=== PATIENT | male | born 1975 | race Caucasian/White ===

== ENCOUNTER → 2023-04-26 12:13 | Outpatient (CLI) | payer BC, SELFPAY ==
--- NOTE | 2023-04-26 | DI.US.S_ITS ---
PROCEDURE: US SCROTUM INDICATIONS: TESTICULAR MASS TECHNIQUE: Real-time scanning was performed of the scrotum and testicles, with image documentation. Color and pulse Doppler interrogation was performed of both testicles. COMPARISON: None. FINDINGS: Right: Right testicle measures 4.4 x 2.3 x 3.6 centimeters. No varicocele or hydrocele. Heterogeneous epididymis, overall normal vascularity. Left: Left testicle measures 3.5 x 1.8 x 2.9 centimeters. No varicocele. Small hydrocele is present. Epididymis is within normal limits. Doppler: Color and pulse Doppler demonstrate normal and symmetric arterial flow in both testicles. IMPRESSION: Mild left hydrocele. No discrete mass identified. Clinical followup is recommended. If there is new or worsening clinical concern, reimaging could be obtained. Dictated by: Justo Barrett M.D. on 04/26/2023 at 17:07 Approved by: Justo Barrett M.D. on 04/26/2023 at 17:09
== END ==
PROVIDERS: PCP Registered Nurse; Referring Provider Registered Nurse; Visit Provider Registered Nurse
DX: N50.9 Disorder of male genital organs, unspecified (principal); N43.3 Hydrocele, unspecified
CPT/HCPCS: 76870

== ENCOUNTER → 2023-08-08 10:34 | Outpatient (CLI) | payer BC, SELFPAY ==
--- NOTE | 2023-08-08 10:37 | DI.RAD.S_ITS ---
PROCEDURE: XR ELBOW RT MIN 3V INDICATIONS: worsening chronic pain growth plate fracture age 9 no repair TECHNIQUE: 3 views of the elbow were acquired. COMPARISON: None. FINDINGS: Bones: No fractures or dislocations. No suspicious bony lesions. Severe periarticular osteophyte formation at the elbow joint. Soft tissues: Small elbow joint effusion. 15 mm diameter intra-articular loose body. No suspicious soft tissue calcifications. IMPRESSION: 1. Osteoarthritis with intra-articular loose body. 2. No acute fracture. No osseous lesion. If symptoms and/or clinical suspicion for pathology persist, further assessment with repeat, or advanced imaging (e.g., CT, MRI, or bone scan) may be helpful for further assessment. Dictated by: Dorian Lowe M.D. on 08/08/2023 at 11:00 Approved by: Dorian Lowe M.D. on 08/08/2023 at 11:00
== END ==
PROVIDERS: PCP Registered Nurse; Referring Provider Student in an Organized Health Care Education/Training Program; Visit Provider Student in an Organized Health Care Education/Training Program
DX: M19.021 Primary osteoarthritis, right elbow (principal); M24.021 Loose body in right elbow; M25.521 Pain in right elbow
CPT/HCPCS: 73080

== ENCOUNTER → 2024-07-07 14:25 | Outpatient (CLI) | payer BC, SELFPAY | PROVIDERS: PCP Registered Nurse; Referring Provider Psychiatry & Neurology Psychiatry; Visit Provider Psychiatry & Neurology Psychiatry | DX: F41.1 Generalized anxiety disorder (principal); F43.10 Post-traumatic stress disorder, unspecified; F90.9 Attention-deficit hyperactivity disorder, unspecified type; F10.21 Alcohol dependence, in remission | CPT/HCPCS: 80307 ==

== ENCOUNTER → 2024-09-08 07:57 | Outpatient (CLI) | payer BC, SELFPAY ==
--- NOTE | 2024-09-08 07:58 | DI.MRI.S_ITS ---
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 Thin-slice sagittal and coronal T1 spin echo, coronal T2 fast spin echo through the pituitary. After the administration contrast, optional dynamic coronal T1 spin echo, thin-slice coronal and sagittal T1 spin echo images through the pituitary fossa; axial and coronal and sagittal T1 spin echo with fat saturation through the brain. COMPARISON: None. FINDINGS: Image quality: Excellent. Pituitary Gland: The pituitary gland demonstrates normal signal and bulk. On the postcontrast imaging, no masses or abnormally enhancing areas are seen. The pituitary stalk and infundibulum have an unremarkable appearance. A normal appearing pituitary bright spot is seen posteriorly on the precontrast sagittal T1-weighted images. The optic chiasm and the ventral forebrain have an unremarkable appearance. CSF Spaces: Ventricles are normal in size and shape. Basal cisterns are patent. No extra-axial fluid collections. Brain: No intracranial bleeds or mass effects. No abnormal intracranial enhancement. Kessler-white matter interface is intact. Diffusion weighted images demonstrate no acute ischemic insults. Brainstem is normal. Normal intravascular flow voids are present. Symmetric calcification can be seen involving the basal ganglia, which is considered to be normal for age. Skull and face: Calvarial marrow is normal in signal. Orbits appear normal. Sinuses: Sinuses and mastoids are clear. IMPRESSION: Normal pituitary, without an imaging explanation found for the patient's presenting history. No masses or abnormal enhancement can be seen. Dictated by: Jose Braswell M.D. on 09/08/2024 at 9:35 Approved by: Jose Braswell M.D. on 09/08/2024 at 9:37
== END ==
PROVIDERS: PCP Registered Nurse; Referring Provider Registered Nurse; Visit Provider Registered Nurse
DX: E29.1 Testicular hypofunction (principal)
CPT/HCPCS: 70553; A9579